=== PATIENT | female | born 1965 | race Two or more races ===

== ENCOUNTER 2022-08-03 02:57 | Observation (INO) | payer OTHER ==
[2022-08-03 03:02] VITALS: BMI 44.9
[2022-08-03 05:15] LABS: BASO % 0.1 % (0-2.0); EOS % 0.3 % (0-4.5); HEMATOCRIT 43.1 % (32.4-45.2); HEMOGLOBIN 13.7 GM/dL (10.7-15.3); LYMPH % 14.1 % (8-40); MCH 26.2 pg (25.7-33.7); MCHC 31.7 g/dl (32.0-36.0); MEAN CELL VOLUME 82.8 fl (80-96); MONO % 5.7 % (3.8-10.2); NEUT % 79.8 % (42.8-82.8); PLATELET COUNT 310 10^3/uL (134-434); RDW 15.9 % (11.6-15.6); WHITE BLOOD COUNT 14.6 K/mm3 (4.0-10.0)
[2022-08-03 05:30] LABS: INR 1.03 (0.83-1.09); PROTHROMBIN TIME (PATIENT) 11.9 SEC (9.7-13.0)
[2022-08-03 05:33] LABS: ACTIVATED PTT 32.7 SECONDS (25.2-36.5); CHLORIDE 101 mmol/L (98-107); SODIUM 138 mmol/L (136-145)
[2022-08-03 05:35] LABS: ALBUMIN 3.6 g/dl (3.4-5.0); CALCIUM 9.1 mg/dL (8.5-10.1)
[2022-08-03 05:37] LABS: ANION GAP 6 MMOL/L (8-16); BLOOD UREA NITROGEN 12.5 mg/dL (7-18); CO2 31 mmol/L (21-32); GLUCOSE,RANDOM 200 mg/dL (74-106)
[2022-08-03 05:40] LABS: BILIRUBIN,TOTAL 0.3 mg/dL (0.2-1); CREATININE 0.7 mg/dL (0.55-1.3); SGOT/AST 21 U/L (15-37); SGPT/ALT 23 U/L (13-61); TOT PROT 7.8 g/dl (6.4-8.2)
[2022-08-03 05:41] LABS: N-TERMINAL BNP 12.4 pg/ml (5-125)
[2022-08-03 05:42] LABS: ALK PHOS 129 U/L (45-117)
[2022-08-03] MEDS ORDERED: ACETAMINOPHEN 1000 MG/100 ML BAG IVPB ONE (10:03)
[2022-08-03] MEDS ORDERED: SODIUM CHLORIDE 0.9% 500 ML INFUS.BAG IV ONE (10:03)
[2022-08-03] MEDS ORDERED: ASPIRIN 81 MG CHEWABLE TABLETS PO ONE (10:09)
[2022-08-03] MEDS ORDERED: ASPIRIN 325 MG TABLET ONE (10:40)
[2022-08-03] MEDS ORDERED: ACETAMINOPHEN INJECTION 100 ML IVPB ONE (10:41)
[2022-08-03] MEDS ORDERED: ACETAMINOPHEN 325 MG TABLET (FP) PO PRN (13:39)
[2022-08-03] MEDS ORDERED: IBUPROFEN 400 MG TABLET (FP) PO PRN (13:39)
[2022-08-03] MEDS: ANASTROZOLE 1 MG TABLET PO SCH (17:17)
[2022-08-03] MEDS: VALSARTAN 80 MG TABLET PO SCH (17:17)
[2022-08-03] MEDS: INSULIN SLIDING SCALE (NOVOLOG) 1 VIAL SQ SCH (17:27)
[2022-08-03] MEDS ORDERED: ATORVASTATIN CA 10 MG TABLET (FP) PO SCH (22:00)
[2022-08-04] MEDS: ENOXAPARIN NA (PORCINE) 40 MG/0.4 ML DISP.SYRIN SQ SCH ×2 (00:01→10:01)
[2022-08-04] MEDS: INSULIN SLIDING SCALE (NOVOLOG) 1 VIAL SQ SCH ×4 (00:01→18:33)
[2022-08-04 01:35] LABS: URINE APPEARANCE CLEAR; URINE BILIRUBIN NEGATIVE (NEGATIVE); URINE COLOR YELLOW; URINE GLUCOSE (UA) NEGATIVE (NEGATIVE); URINE KETONE NEGATIVE (NEGATIVE); URINE LEUK ESTERASE NEGATIVE (NEGATIVE); URINE NITRITE NEGATIVE (NEGATIVE); URINE PROTEIN NEGATIVE (NEGATIVE); URINE UROBILINOGEN 0.2 mg/dL (0.2-1.0)
[2022-08-04 09:59] VITALS: TEMP 98.2
[2022-08-04] MEDS ORDERED: ASPIRIN 81 MG CHEWABLE TABLETS PO SCH (10:00)
[2022-08-04] MEDS: ANASTROZOLE 1 MG TABLET PO SCH (10:02)
[2022-08-04] MEDS: VALSARTAN 80 MG TABLET PO SCH (10:02)
[2022-08-04 10:49] LABS: EOS % 1.8 % (0-4.5); HEMATOCRIT 40.2 % (32.4-45.2); LYMPH % 26.2 % (8-40); MCH 26.7 pg (25.7-33.7); MCHC 32.3 g/dl (32.0-36.0); MEAN CELL VOLUME 82.7 fl (80-96); MEAN PLT VOLUME 8.8 fl (7.5-11.1); MONO % 7.5 % (3.8-10.2); NEUT % 63.5 % (42.8-82.8); PLATELET COUNT 304 10^3/uL (134-434); RBC 4.87 M/mm3 (3.60-5.2); RDW 16.3 % (11.6-15.6); WHITE BLOOD COUNT 10.2 K/mm3 (4.0-10.0)
[2022-08-04 11:15] LABS: BLOOD UREA NITROGEN 10.4 mg/dL (7-18); CALCIUM 9.3 mg/dL (8.5-10.1); MAGNESIUM 2.4 mg/dL (1.8-2.4)
[2022-08-04 11:16] LABS: CREATININE 0.7 mg/dL (0.55-1.3)
[2022-08-04 11:19] LABS: PHOSPHOROUS 3.8 mg/dL (2.5-4.9)
[2022-08-04] MEDS ORDERED: FUROSEMIDE 40 MG/4 ML INJECTABLE VIAL IVPUSH ONE (12:56)
[2022-08-04 15:12] VITALS: BP 123/91; PULSE 104; RESP 18
== END 2022-08-04 17:14 | disposition home or self-care (01) ==
LOC: JER 02:57 → JERBED 10:00 → J5S 13:28
PROVIDERS: ADMIT Internal Medicine; ATTEND Internal Medicine
PROC: 3E033NZ Introduction of Analgesics, Hypnotics, Sedatives into Peripheral Vein, Percutaneous Approach (ICD-10-PCS; principal; 2022-08-03)
PROC: 3E023GC Introduction of Other Therapeutic Substance into Muscle, Percutaneous Approach (ICD-10-PCS; 2022-08-03)
PROC: 3E033GC Introduction of Other Therapeutic Substance into Peripheral Vein, Percutaneous Approach (ICD-10-PCS; 2022-08-03)
PROC: 3E0337Z Introduction of Electrolytic and Water Balance Substance into Peripheral Vein, Percutaneous Approach (ICD-10-PCS; 2022-08-03)
DX: R07.89 Other chest pain (principal); I10 Essential (primary) hypertension; E78.5 Hyperlipidemia, unspecified; E11.9 Type 2 diabetes mellitus without complications; Z85.3 Personal history of malignant neoplasm of breast; Z29.8 Encounter for other specified prophylactic measures
CPT/HCPCS: 0241U-QW; 36415; 71275-TC; 80048; 80053; 80061; 81003; 82962; 83036; 83735; 83880; 84100; 84443; 84484; 85025; 85610; 85730; 87086; 87186; 93005; 93010; 93306-TC; 96372; 96374; 96375; 99285-25; G0378